=== PATIENT | male | born 1955 | race Caucasian/White ===

== ENCOUNTER 2020-12-28 06:42 | Outpatient (CLI) | payer MEDICARE | END 2020-12-28 23:59 | disposition home or self-care (01) | LOC: LAB 06:42 | PROVIDERS: ATTEND Surgery | DX: Z01.812 Encounter for preprocedural laboratory examination (principal); Z20.822 Contact with and (suspected) exposure to COVID-19 ==

== ENCOUNTER 2020-12-31 08:54 | Day surgery (SDC) | payer MEDICARE, OTHER ==
[2020-12-31] MEDS ORDERED: PROPOFOL 200 MG/20 ML BOTTLE IV ONE (08:55)
[2020-12-31 10:06] LABS: BASOPHILS # (AUTO) 0.1 K/uL (0.0-8.0); BASOPHILS % (AUTO) 0.9 % (0.0-2.0); EOSINOPHILS # (AUTO) 0.2 K/uL (0.0-0.7); EOSINOPHILS % (AUTO) 3.7 % (0.0-7.0); HEMATOCRIT 41.8 % (36.7-47.1); HEMOGLOBIN 14.3 g/dL (12.5-16.3); LYMPHOCYTES # (AUTO) 2.3 K/uL (20.0-40.0); LYMPHOCYTES % (AUTO) 36.7 % (20.5-51.5); MEAN CORPUSCULAR HEMOGLOBIN 31.5 uug (23.8-33.4); MEAN CORPUSCULAR HGB CONC 34 g/dL (32.5-36.3); MEAN CORPUSCULAR VOLUME 91.7 fL (73.0-96.2); MONOCYTES # (AUTO) 0.5 K/uL (2.0-10.0); MONOCYTES % (AUTO) 8.1 % (0.0-11.0); NEUTROPHILS # (AUTO) 3.1 K/uL (1.8-8.9); NEUTROPHILS % (AUTO) 50.6 % (38.5-71.5); PLATELET COUNT (AUTO) 252 K/uL (152-348); RED BLOOD CELL COUNT(AUTO) 4.56 MIL/uL (4.06-5.63); WHITE BLOOD COUNT (AUTO) 6.2 K/uL (3.6-10.2)
[2020-12-31 10:11] LABS: POTASSIUM 4.2 mmol/L (3.5-5.1)
[2020-12-31 10:13] LABS: *CLARITY,URINE CLEAR (CLEAR); *COLOR,URINE YELLOW (YELLOW); *KETONES,URINE NEGATIVE (NEGATIVE); *UROBILINOGEN,URINE 0.2 E.U./dl (NORMAL); LEUKOCYTE ESTERASE ,URINE NEGATIVE (NEGATIVE); NITRITE, URINE NEGATIVE (NEGATIVE); PH,URINE 5.5 (5.0-8.0); UGLUCOSE NEGATIVE (NEGATIVE)
[2020-12-31 10:14] LABS: *BLOOD, URINE TRACE (NEGATIVE)
[2020-12-31 10:16] LABS: *BILIRUBIN,URIN 1+ (NEGATIVE)
[2020-12-31 10:25] LABS: BILIRUBIN,TOTAL 0.4 mg/dL (0.2-1.0)
[2020-12-31 10:33] LABS: BACTERIA,URINE FEW /HPF (NONE SEEN); RBC,URINE 0-3 /HPF (0-3); WBC,URINE 0-3 /HPF (0-3)
[2020-12-31 10:34] LABS: SQUAMOUS EPITHELIAL CELL,UR FEW /HPF (NONE SEEN)
== END 2020-12-31 15:10 | disposition home or self-care (01) ==
LOC: DS 08:54
PROVIDERS: ATTEND Surgery
DX: K30 Functional dyspepsia (principal); K66.8 Other specified disorders of peritoneum; R19.7 Diarrhea, unspecified; K44.9 Diaphragmatic hernia without obstruction or gangrene; K63.89 Other specified diseases of intestine; K31.89 Other diseases of stomach and duodenum; K29.70 Gastritis, unspecified, without bleeding; K63.5 Polyp of colon; I10 Essential (primary) hypertension; E11.9 Type 2 diabetes mellitus without complications; Z79.899 Other long term (current) drug therapy; Z98.890 Other specified postprocedural states; Z72.89 Other problems related to lifestyle; Z88.8 Allergy status to other drugs, medicaments and biological substances
CPT/HCPCS: 36415; 43239; 45380; 80053; 81001; 85025; 85730; J7120; A4217; A4663; J3490